=== PATIENT | female | born 2000 | race Caucasian/White ===

== ENCOUNTER 2021-06-06 18:47 | Emergency (ER) | payer OTHER ==
[~2021-06-06 18:47] MED LIST: CYCLOBENZAPRINE10 MG PO; LODINE400 MG PO
[2021-06-06 19:13] LABS: BASOPHIL 0.3 % (0-2); EOSINOPHIL 0.5 % (0-5); HCT 41.5 % (37.0-47.0); HGB 13.6 g/dl (12.5-16.0); LYMPHOCYTE 27.2 % (15-48); MCH 26.6 pg (25.0-31.0); MCHC 32.8 g/dL (32.0-36.0); MCV 81.2 fL (78.0-100.0); MONOCYTE 5.2 % (0-12); MPV 8.8 fL (6.0-9.5); NEUTROPHIL 66.5 % (41-80); NRBC 0; PLT 243 K/uL (150-400); RBC 5.11 M/uL (4.20-5.40); RDW 14.2 % (11.5-14.0); WBC 9.2 K/uL (4.0-10.5)
[2021-06-06 19:24] LABS: INR 1.08 (0.9-1.2); PROTHROMBIN TIME 13.4 SECONDS (11.8-13.4); PTT 23.8 SECONDS (24.4-34.7)
[2021-06-06 19:39] LABS: ALKALINE PHOSHATASE 76 U/L (46-116); ALT 25 U/L (14-59); AST 23 U/L (15-37); BILIRUBIN - TOTAL 0.3 mg/dL (0.2-1.0); BUN 15 mg/dL (7-18); BUN/CREAT RATIO (CALC) 19.5 RATIO; CHLORIDE 104 mmol/L (98-107); CO2 (BICARBONATE) 23 mmol/L (21-32); CREATININE 0.77 mg/dL (0.51-0.95); GLOBULIN (CALCULATION) 3.6 g/dL; GLUCOSE 108 mg/dL (74-106); LIPASE 81 U/L (73-393); MAGNESIUM 1.7 mg/dL (1.8-2.4); POTASSIUM 3.5 mmol/L (3.5-5.1); TOTAL PROTEIN 7.6 g/dL (6.4-8.2)
[2021-06-06 21:13] LABS: BILIRUBIN NEGATIVE (NEGATIVE); BLOOD 2+ Ery/uL (NEGATIVE); CLARITY CLEAR (CLEAR); COLOR YELLOW (YELLOW); GLUCOSE (U) NORMAL (NORMAL); LEUKOCYTES NEGATIVE Leu/uL (NEGATIVE); NITRITE NEGATIVE (NEGATIVE); PROTEIN NEGATIVE (NEGATIVE); SPECIFIC GRAVITY <=1.005 (1.001-1.030); UROBILINOGEN 0.2 mg/dL (0.2-1.0)
[2021-06-06 22:21] LABS: HCG (URINE) SCREEN NEGATIVE (NEGATIVE)
== END 2021-06-06 23:15 | disposition other institution (70) ==
LOC: FER 18:47
PROVIDERS: Emergency Medicine
DX: S92.14 Dome fracture of talus (principal); S92.001B Unspecified fracture of right calcaneus, initial encounter for open fracture; F17.200 Nicotine dependence, unspecified, uncomplicated; Z20.822 Contact with and (suspected) exposure to COVID-19; V43.52XA Car driver injured in collision with other type car in traffic accident, initial encounter
CPT/HCPCS: 36415; 70450; 71260; 72125; 72128; 72131; 73130; 73560; 73600; 73610; 73700; 80053; 81001; 83690; 83735; 84484; 84703; 85025; 85610; 85730; 90471; 96365; 96375; 96376; 99152; G0480; J1170; Q9967; U0002